=== PATIENT | female | born 1940 | race African-American/Black ===

== ENCOUNTER 2017-06-09 12:00 | Observation (INO) ==
[~2017-06-09 12:00] MED LIST: ACETYLCYSTEINE 600 MG CAPSULE PO SCH
[2017-06-09] MEDS: SODIUM CHLORIDE 0.9% 1,000 ML IV SCH ×2 (16:33→17:13)
--- NOTE | 2017-06-09 17:26 | Nephrology History & Physical ---
History of Present Illness Chief complaint: Complex renal cyst History of present illness: Ms. Brand is a 77 year old female with chronic kidney disease stage III with a creatinine around 2.5 mg/dL recently. The patient is admitted at this time for a CT scan with contrast of a complex cyst seen by ultrasound done about a month ago. The patient is admitted the night before for IV fluid hydration and Mucomyst therapy. We are going to hold her diuretics today and tomorrow. We will plan on keeping the patient in for about [address] scan to continue IV fluids. And also administer her 2 more doses of Mucomyst post procedure. The patient denies any abdominal complaints she denies any fever or chills. ROS: Head - denies headaches ENT - denies sore throat Lymphatics - denies lymphadenopathy Hematology - denies bleeding problems Heart - denies chest pain Lungs - denies shortness of breath Abdomen - denies abdominal pain PE: General: in no acute distress Eyes: Pupils are round and reactive, conjunctivae are clear ENT: Nose is clear, O/P is benign Neck: Supple, no thyromegaly Lymphatics: No cervical, supraclavicular or axillary adenopathy Heart: Regular rate and rhythm, trace pretibial edema Lungs: Clear to auscultation anteriorly, chest expansion symmetric Abdomen: Soft, normoactive bowel sounds, no hepatomegaly Musculoskeletal: No joint erythema or effusions or joint asymmetry Skin: Normal turgor, normal hydration, no rash Neuro/Psych: Alert and cooperative with fair insight Home Medications Medication Instructions Recorded Confirmed Type Aspirin 325 mg PO DAILY 06/09/17 06/09/17 History D3/Folic Acid/Collagen,Hydroly 1,000 units PO DAILY 06/09/17 06/09/17 History [Cyfolex Capsule] Doxazosin [Cardura] 2 mg PO DAILY 06/09/17 06/09/17 History Glimepiride 2 mg PO DAILY 06/09/17 06/09/17 History Lovastatin 10 mg PO DAILY 06/09/17 06/09/17 History amLODIPine [Norvasc] 10 mg PO DAILY 06/09/17 06/09/17 History cloNIDine HCl [Clonidine HCl] 0.2 mg PO DAILY 06/09/17 06/09/17 History Allergies Allergy/AdvReac Type Severity Reaction Status Date / Time No Known Allergies Allergy Verified 06/09/17 16:40 Medical,Surgical,& Family Hx - Medical History Cardio: History of: Hypertension Endocrine: History of: Diabetes Mellitus (NIDDM) - Surgical History Reproductive Surgeries: Surgical HX of;: Section (60 years ago) - Family History Family History: Reports;: Family Cancer (Mother- Pancreatic Cancer), Family Hypertension (Mother) - Social History Smoking Status: Former smoker Frequency of Alcohol Use: None Type of Drug Use: None Exam - Nephrology - Vital Signs Vital signs: Vital Signs Temp Pulse Resp BP Pulse Ox 06/09/17 15:31 97.1 F L 64 18 162/73 99 06/09/17 15:28 97.1 F L 64 18 162/73 99 Assessment and Plan (1) Complex renal cyst Status: Acute Assessment and plan: Patient is admitted for a CT scan with contrast to evaluate a complex renal cyst seen by ultrasound. She is been seen by Dr. Garcia and he agrees with this further evaluation. Current Visit: Yes (2) Hypertension Status: Acute Assessment and plan: We will continue her antihypertensives Current Visit: Yes (3) Diabetes mellitus Status: Acute Current Visit: Yes (4) Chronic kidney disease, stage III (moderate) Status: Acute Current Visit: Yes (5) Hyperlipidemia Status: Acute Current Visit: Yes
[2017-06-09] MEDS ORDERED: LACTULOSE 20 GM/30 ML UDCUP PO PRN (17:32)
[2017-06-09] MEDS ORDERED: ZALEPLON 5 MG CAPSULE PO PRN (17:32)
[2017-06-09] MEDS ORDERED: ACETAMINOPHEN 325 MG TABLET PO PRN (17:32)
[2017-06-09] MEDS ORDERED: PROMETHAZINE 25 MG TABLET PO PRN (17:32)
[2017-06-09] MEDS ORDERED: diphenhydrAMINE CAP 25 MG CAPSULE PO PRN (17:32)
[2017-06-09] MEDS ORDERED: ONDANSETRON 4 MG/2 ML VIAL IV PRN (17:32)
[2017-06-09] MEDS ORDERED: BISACODYL 5 MG TABLET PO PRN (17:32)
[2017-06-09] MEDS ORDERED: DOCUSATE SODIUM 100 MG CAPSULE PO PRN (17:32)
[2017-06-09] MEDS ORDERED: DEXTROSE 50% 25 GM/50 ML VIAL IV PRN (17:35)
[2017-06-09] MEDS ORDERED: GLUCAGON 1 MG VIAL IM PRN (17:35)
[2017-06-09] MEDS: ACETYLCYSTEINE 600 MG CAPSULE PO SCH (17:56)
[2017-06-10] MEDS ORDERED: ACETYLCYSTEINE 600 MG CAPSULE PO SCH (06:00)
[2017-06-10] MEDS: ACETYLCYSTEINE 600 MG CAPSULE PO SCH ×3 (06:28→17:37)
[2017-06-10] MEDS: SODIUM CHLORIDE 0.9% 1,000 ML IV SCH (06:28)
[2017-06-10] MEDS ORDERED: amLODIPine 10 MG TABLET PO SCH (09:00)
[2017-06-10] MEDS ORDERED: ASPIRIN 325 MG TABLET PO SCH (09:00)
[2017-06-10] MEDS ORDERED: LOVASTATIN 20 MG TABLET PO SCH (09:00)
[2017-06-10] MEDS ORDERED: DOXAZOSIN 4 MG TABLET PO SCH (09:00)
[2017-06-10] MEDS ORDERED: [UNRECOGNIZED DRUG - MIXTURE] PO SCH (09:00)
[2017-06-10] MEDS ORDERED: GLIMEPIRIDE 2 MG TABLET PO SCH (09:00)
[2017-06-10] MEDS: INSULIN REGULAR 100 UNIT/ML SUBCUT SCH ×2 (09:11→17:38)
--- NOTE | 2017-06-10 09:23 | CT Report ---
CT renal w con Indication: Renal mass on ultrasound. CT ABDOMEN WITH AND WITHOUT CONTRAST, renal protocol DLP: 535 mGy*cm. One or more of the following dose reduction techniques was used: Automated exposure control, adjustment of the mA and/or kV according the patient size, or use of iterative reconstruction techniques. Comparison: None Technique: Axial CT images of the abdomen primarily focused on the kidneys were obtained pre-and post IV contrast administration. Oral contrast was not administered. Omnipaque 350, 100 cc. Abdomen: Both kidneys demonstrate marked lobulations and cortical thinning. Both kidneys also demonstrate focal cortical defects consistent with scarring, difficult to further characterize. At the upper pole the right kidney is a oval-shaped 13 x 27 mm perfusion defect that gradually washes in on delayed phase. There is a small dilated calyx at the lateral portion of the upper pole right kidney as well, 9 mm diameter. No other right renal lesions are definitively identified. In the left kidney, there is a complex cluster of cysts anterior upper pole measuring approximately 18 mm in diameter. The 2 dominant satellite cysts are each 7 mm in size. Just lateral of this cystic complex is a 10 mm enhancing nodule that may represent a mass. It washes in on delayed phases. No other left renal lesions are shown. Neither kidney is obstructed and no abnormal calcifications are seen. The liver, spleen, adrenal glands, pancreas, gallbladder and bowel appear grossly unremarkable. Appendix is normal in size without inflammation. Normal heart size. Interstitial scarring of the lung bases noted. No infiltrates or nodules demonstrated. Degenerative changes thoracolumbar spine are present but relatively mild. Mild atheromatous disease of the aorta. Impression: 1. Both kidneys have renal cortical thinning and scattered areas of cortical defects most consistent with scarring. In addition, there is a lobulated perfusion defect that gradually washes in on delayed phases at the upper pole the right kidney, either scarring or mass. There is a complex cluster of cysts within the upper pole the left kidney described above as well, 18 mm overall diameter. Lateral of this cluster of cysts is a 10 mm enhancing nodule that may represent a mass or cortical scarring. These findings are all relatively indeterminate. Consider 3 month follow-up CT. 2. Interstitial scarring lung bases. Mild atheromatous disease. PROCEDURE INTERPRETED AT [facility] DEPARTMENT OF RADIOLOGY Final Report Signed by: Suman Mcguire M.D.
--- NOTE | 2017-06-10 10:37 | Discharge Summary ---
Hospital Course - Hospital Course Hospital Course: Patient was admitted for a contrasted CT scan due to a abnormal appearing renal masslike lesion on her left kidney. The patient was hydrated with saline 12 hours preprocedure and is to receive another 6 hours of hydration post procedure we also gave her Mucomyst pre-and post procedure. I am going to have the patient follow-up with a BMP early next week. The CT scan shows multiple scarring defects in both kidneys as well as some cystic lesions and a 1 cm enhancing lobular lesion on the left. I am going to have her follow-up with Dr. Jorge Garcia to evaluate this further. Radiology is suggested 3 month follow-up with the CT scan. Patient's creatinine was around 2.5 mg/dL a few weeks ago, I have not calculated her GFR off of this if it is greater than 30 mL 's per minute then I would probably be inclined to have a follow-up MRI in 3 months as opposed to a contrasted CT scan. Diagnosis - Discharge Diagnosis (1) Complex renal cyst Status: Acute (2) Hypertension Status: Acute (3) Diabetes mellitus Status: Acute (4) Chronic kidney disease, stage III (moderate) Status: Acute (5) Hyperlipidemia Status: Acute Discharge Plan - Discharge Data Disposition: Disch To Home/Self Care Condition at Discharge: Stable Discharge Diet: advance to your usual diet Activity: resume usual activities as tolerated - Discharge Medications No Action cloNIDine HCl [Clonidine HCl] 0.2 mg PO DAILY Glimepiride 2 mg PO DAILY amLODIPine [Norvasc] 10 mg PO DAILY D3/Folic Acid/Collagen,Hydroly [Cyfolex Capsule] 1,000 units PO DAILY Aspirin 325 mg PO DAILY Doxazosin [Cardura] 2 mg PO DAILY Lovastatin 10 mg PO DAILY - Follow Up or Referral Follow Up: Jorge Garcia MD [Physician] - 2 Weeks (F/u left enhancing 1 cm left renal lesion/mass by contrasted ct scan) Suman Valle MD [Primary Care Provider] - 1 Week (f/u next Tuesday for bmp only, no need to see me at that time.) - Forms/Instructions Additional Discharge Instructions: Discharge home around 3 to 4 PM this evening continue IV fluids up to the time of discharge. Exam - Constitutional Vitals: Period Temp Pulse Resp BP Sys/Burrell Pulse Ox Last 24 Hr 97.1 F-98.4 F 64-77 18-20 152-178/73-79 95-99 Discharge Results Labs on day of discharge: Labs from last 24 hours 06/10/17 08:05 POC Glucose 169 H DS: Provider Date of admission: 06/09/17 14:35 Primary care physician: Suman Valle MD Attending physician on admission: Suman Valle MD Discharging clinician: Suman Valle MD
[2017-06-10 12:03] VITALS: BP 136/65
== END 2017-06-10 18:15 | disposition home or self-care (01) ==
LOC: N.4E
PROVIDERS: ADMIT Internal Medicine Nephrology; ATTEND Internal Medicine Nephrology

== ENCOUNTER 2021-10-04 19:23 | Observation (INO) ==
[2021-10-04] MEDS: DEXTROSE 5% NACL 0.45% 1,000 ML IV SCH (20:00)
[2021-10-04 20:02] LABS: Eosinophils # 0.2 10*3/uL (0.0-0.87); Eosinophils % 2.8 % (0.00-10.9); Hematocrit 32.4 VOL% (35.7-47.0); Hemoglobin 9.8 GM/DL (12.0-16.0); Immature Granulocytes % 0.5 %; Immature Granulocytes Absolute 0.03 #; Lymphocytes # 0.5 10*3/uL (1.4-4.0); Lymphocytes % 8.2 % (21.3-54.2); Mean Corpuscular HGB Conc 30.2 GM/DL (32-36); Mean Corpuscular Volume 84.4 FL (87-102); Mean Platelet Volume 11.2 FL (9.6-12.0); Monocytes % 12.1 % (1.7-12.7); Neutrophils % 76.4 % (38.7-73.9); Platelet Count 156 T/CUMM (130-400); Red Blood Count 3.84 MC/CUMM (3.8-5.5); Red Cell Distribution Width 14.2 % (9.3-17.3); White Blood Count 6.1 T/CUMM (4-12)
[2021-10-04 20:30] LABS: Alanine Aminotransferase 13 U/L (13-56); Albumin 3.7 G/DL (3.4-5.0); Alkaline Phosphatase 61 U/L (45-117); Aspartate Amino Transferase 13 U/L (0-37); Bilirubin,Total < 0.39 MG/DL (0.20-1.00); Blood Urea Nitrogen 68 MG/DL (7-18); Carbon Dioxide 22 MMOL/L (21-32); Estimated Glom Filtration Rate 3 ML/MIN; Glucose 94 MG/DL (74-106); Osmolality,Calculated 296.5 MOS/KG (273-304); Potassium 3.4 MMOL/L (3.5-5.1); Sodium 139 MMOL/L (136-145); Total Protein 8.1 G/DL (6.4-8.2)
[2021-10-04 20:57] LABS: Bacteria,Urine Occasional /HPF (Few); Bilirubin,Urine Negative (Negative); Blood, Urine Small mg/dL (Negative); Glucose,Urine (UA) Negative (Negative); Ketones,Urine Negative (Negative); Nitrite,Urine Negative (Negative); Protein,Urine >=500 MG/DL; RBC,Urine 6 /HPF (0-4); Squamous Epithelial Cell,Urine Occasional /HPF (0-10); Urine Appearance Slightly Hazy (Clear); Urine Color Yellow (Yellow); Urine Specific Gravity 1.011 (1.001-1.035); Urine Urobilinogen < 2.0 EU/DL (0.2-1.0)
[2021-10-04 21:21] LABS: PT Patient Result 11.3 SECS (10.5-12.0)
[2021-10-04] MEDS ORDERED: CIPROFLOXACIN 500 MG TABLET PO STA (21:29)
[2021-10-04] MEDS ORDERED: DEXTROSE 50% 25 GM/50 ML SYRINGE IV ONE (21:32)
[2021-10-04] MEDS ORDERED: DEXTROSE 50% 25 GM/50 ML VIAL IV STA (21:32)
[2021-10-04] MEDS ORDERED: LEVOFLOXACIN INJ 500 MG/100 ML PREMIX IV ONE (21:32)
[2021-10-04] MEDS ORDERED: hydrALAZINE 20 MG/1 ML VIAL IV STA (21:38)
[2021-10-04] MEDS ORDERED: DEXTROSE 10% 1,000 ML IV SCH (22:00)
[2021-10-04] MEDS ORDERED: GLUCAGON 1 MG VIAL IM PRN (22:09)
[2021-10-04] MEDS ORDERED: ACETAMINOPHEN 325 MG TABLET PO PRN (22:09)
[2021-10-04] MEDS: HEPARIN 5,000 UNIT/1 ML VIAL SUBCUT SCH (23:33)
[2021-10-05] MEDS: DEXTROSE 50% 25 GM/50 ML VIAL IV PRN ×3 (02:10→05:59)
[2021-10-05 02:39] LABS: Alanine Aminotransferase 9 U/L (13-56); Alkaline Phosphatase 54 U/L (45-117); Aspartate Amino Transferase 12 U/L (0-37); Bilirubin,Total < 0.39 MG/DL (0.20-1.00); Blood Urea Nitrogen 69 MG/DL (7-18); Calcium 8.8 MG/DL (8.5-10.1); Carbon Dioxide 22 MMOL/L (21-32); Estimated Glom Filtration Rate 3 ML/MIN; Osmolality,Calculated 290.7 MOS/KG (273-304); Potassium 3.4 MMOL/L (3.5-5.1); Sodium 138 MMOL/L (136-145)
[2021-10-05 02:41] LABS: Glucose 35 MG/DL (74-106)
[2021-10-05] MEDS ORDERED: HYDROCORTISONE 100 MG VIAL IV STA (03:17)
[2021-10-05 04:33] LABS: Eosinophils # 0.1 10*3/uL (0.0-0.87); Eosinophils % 1.8 % (0.00-10.9); Hematocrit 28.7 VOL% (35.7-47.0); Immature Granulocytes % 0.4 %; Immature Granulocytes Absolute 0.02 #; Lymphocytes # 0.5 10*3/uL (1.4-4.0); Lymphocytes % 9.1 % (21.3-54.2); Mean Corpuscular HGB Conc 31.4 GM/DL (32-36); Mean Corpuscular Volume 82.7 FL (87-102); Mean Platelet Volume 11.5 FL (9.6-12.0); Neutrophils % 75.7 % (38.7-73.9); Platelet Count 146 T/CUMM (130-400); Red Blood Count 3.47 MC/CUMM (3.8-5.5); White Blood Count 5.1 T/CUMM (4-12)
[2021-10-05 05:15] LABS: Albumin 2.9 G/DL (3.4-5.0); Bilirubin,Total 0.8 MG/DL (0.20-1.00); Calcium 8.7 MG/DL (8.5-10.1); Osmolality,Calculated 294.4 MOS/KG (273-304); Potassium 3.3 MMOL/L (3.5-5.1); Thyroid Stimulating Hormone 1.44 uIU/ml (0.358-3.74); Total Protein 6.9 G/DL (6.4-8.2)
[2021-10-05] MEDS ORDERED: cloNIDine 0.1 MG TABLET PO ONE (05:18)
[2021-10-05] MEDS: amLODIPine 10 MG TABLET PO SCH (09:14)
[2021-10-05] MEDS: DEXTROSE 5% NACL 0.45% 1,000 ML IV SCH (09:32)
[2021-10-05] MEDS: HEPARIN 5,000 UNIT/1 ML VIAL SUBCUT SCH ×2 (11:32→21:50)
[2021-10-05] MEDS ORDERED: ZALEPLON 5 MG CAPSULE PO PRN (22:49)
[2021-10-06] MEDS: DEXTROSE 5% 1,000 ML IV SCH ×3 (01:07→22:47)
[2021-10-06 05:50] LABS: Calcium 8.9 MG/DL (8.5-10.1); Osmolality,Calculated 296.7 MOS/KG (273-304); Potassium 3.7 MMOL/L (3.5-5.1)
[2021-10-06] MEDS: amLODIPine 10 MG TABLET PO SCH (08:11)
[2021-10-06] MEDS: HEPARIN 5,000 UNIT/1 ML VIAL SUBCUT SCH ×2 (12:01→21:54)
[2021-10-06] MEDS ORDERED: LEVOFLOXACIN INJ 500 MG/100 ML PREMIX IV SCH (21:00)
[2021-10-07 06:00] LABS: Calcium 8.6 MG/DL (8.5-10.1); Osmolality,Calculated 295.7 MOS/KG (273-304); Potassium 4.1 MMOL/L (3.5-5.1)
[2021-10-07] MEDS: amLODIPine 10 MG TABLET PO SCH (09:08)
[2021-10-07] MEDS: DEXTROSE 5% 1,000 ML IV SCH (09:17)
[2021-10-07] MEDS: HEPARIN 5,000 UNIT/1 ML VIAL SUBCUT SCH ×2 (11:56→21:31)
[2021-10-08 04:51] LABS: Basophils % 0.2 % (0.0-0.8); Eosinophils # 0.5 10*3/uL (0.0-0.87); Eosinophils % 8.3 % (0.00-10.9); Hematocrit 27.6 VOL% (35.7-47.0); Hemoglobin 8.5 GM/DL (12.0-16.0); Immature Granulocytes % 0.5 %; Immature Granulocytes Absolute 0.03 #; Lymphocytes # 0.9 10*3/uL (1.4-4.0); Lymphocytes % 16.2 % (21.3-54.2); Mean Corpuscular HGB Conc 30.8 GM/DL (32-36); Mean Corpuscular Volume 83.9 FL (87-102); Mean Platelet Volume 11.7 FL (9.6-12.0); Monocytes % 13.9 % (1.7-12.7); Neutrophils % 60.9 % (38.7-73.9); Platelet Count 145 T/CUMM (130-400); Red Blood Count 3.29 MC/CUMM (3.8-5.5); Red Cell Distribution Width 14.3 % (9.3-17.3); White Blood Count 5.6 T/CUMM (4-12)
[2021-10-08 05:13] LABS: Calcium 8.7 MG/DL (8.5-10.1); Osmolality,Calculated 300.4 MOS/KG (273-304)
[2021-10-08] MEDS: amLODIPine 10 MG TABLET PO SCH (09:29)
[2021-10-08] MEDS ORDERED: CITRIC ACID/SODIUM CITRATE 30 ML UDCUP PO SCH (09:30)
[2021-10-08 11:32] VITALS: BP 157/55
[2021-10-08] MEDS: HEPARIN 5,000 UNIT/1 ML VIAL SUBCUT SCH (11:50)
== END 2021-10-08 14:33 | disposition home or self-care (01) ==
LOC: N.ED 19:23 → N.EDINP 19:23 → SUATTDRO 22:09 → N.EDINP 10-05 04:28 → N.ICU 10-05 04:45 → N.3E 10-05 16:44
PROVIDERS: ADMIT Internal Medicine; ATTEND Internal Medicine

== ENCOUNTER 2021-10-15 10:52 | Inpatient (IN) ==
[2021-10-15] MEDS ORDERED: ONDANSETRON 4 MG/2 ML VIAL IV PRN (13:51)
[2021-10-15] MEDS ORDERED: ACETAMINOPHEN 325 MG TABLET PO PRN (13:51)
[2021-10-15] MEDS ORDERED: PROMETHAZINE 25 MG TABLET PO PRN (13:51)
[2021-10-15] MEDS ORDERED: MAGNESIUM HYDROXIDE SUSP 30 ML UDCUP PO PRN (13:51)
[2021-10-15] MEDS ORDERED: BISACODYL 5 MG TABLET PO PRN (13:51)
[2021-10-15] MEDS ORDERED: cloNIDine 0.1 MG TABLET PO PRN (13:58)
[2021-10-15 16:10] LABS: Hepatitis B Surface Ab Result Reactive (NonReactive)
[2021-10-15 16:22] LABS: Hepatitis B Surface Ag Quant < 0.10 Index; Hepatitis B Surface Ag Result Non-Reactive (NonReactive)
[2021-10-16] MEDS: PANTOPRAZOLE 40 MG TABLET PO SCH (06:29)
[2021-10-16] MEDS ORDERED: EPOETIN ALFA-EPBX 2,000 UNIT/ML VIAL IV PRN (09:39)
[2021-10-16] MEDS ORDERED: LIDOCAINE/PRILOCAINE CREAM 5 GM TUBE TOP SCH (09:40)
[2021-10-16] MEDS ORDERED: GLUCAGON 1 MG VIAL IM PRN (09:43)
[2021-10-16] MEDS ORDERED: DEXTROSE 50% 25 GM/50 ML SYRINGE IV PRN (09:47)
[2021-10-16 11:18] LABS: Eosinophils # 0.3 10*3/uL (0.0-0.87); Eosinophils % 5.3 % (0.00-10.9); Hematocrit 27.8 VOL% (35.7-47.0); Hemoglobin 8.7 GM/DL (12.0-16.0); Lymphocytes # 0.8 10*3/uL (1.4-4.0); Lymphocytes % 14.1 % (21.3-54.2); Mean Corpuscular HGB Conc 31.3 GM/DL (32-36); Mean Corpuscular Volume 82.2 FL (87-102); Mean Platelet Volume 11.9 FL (9.6-12.0); Monocytes % 13.4 % (1.7-12.7); Neutrophils % 66.6 % (38.7-73.9); Platelet Count 111 T/CUMM (130-400); Red Blood Count 3.38 MC/CUMM (3.8-5.5); Red Cell Distribution Width 14.4 % (9.3-17.3); White Blood Count 5.5 T/CUMM (4-12)
[2021-10-16 11:45] LABS: Albumin 3.3 G/DL (3.4-5.0); Calcium 9.5 MG/DL (8.5-10.1); Potassium 3.2 MMOL/L (3.5-5.1)
[2021-10-16 11:48] LABS: % Iron Saturation 20.2 % (18-50); Ferritin 222.6 ng/mL (8-252)
[2021-10-16 12:53] LABS: Band Neutrophils 1 % (0-10); Eosinophils 7 % (0-10); Hypochromasia 2+; Lymphocytes 7 % (20-55); Segmented Neutrophils 77 % (50-85); Total Cells Counted 100
[2021-10-16 12:54] LABS: Microcytosis Slight; Ovalocytes Few; Platelet Estimate Adequate; Polychromasia Slight
[2021-10-16] MEDS: amLODIPine 2.5 MG TABLET PO SCH (14:51)
[2021-10-16] MEDS: INSULIN REGULAR 100 UNIT/ML SUBCUT SCH (16:26)
[2021-10-17] MEDS: PANTOPRAZOLE 40 MG TABLET PO SCH (06:15)
[2021-10-17] MEDS: amLODIPine 2.5 MG TABLET PO SCH ×2 (07:47→08:39)
[2021-10-17] MEDS: INSULIN REGULAR 100 UNIT/ML SUBCUT SCH ×2 (08:39→16:18)
[2021-10-18] MEDS: PANTOPRAZOLE 40 MG TABLET PO SCH (06:25)
[2021-10-18] MEDS: INSULIN REGULAR 100 UNIT/ML SUBCUT SCH ×2 (07:41→15:50)
[2021-10-18] MEDS: amLODIPine 2.5 MG TABLET PO SCH (08:57)
[2021-10-19] MEDS: PANTOPRAZOLE 40 MG TABLET PO SCH (05:49)
[2021-10-19] MEDS: INSULIN REGULAR 100 UNIT/ML SUBCUT SCH ×2 (09:15→18:14)
[2021-10-19] MEDS: amLODIPine 2.5 MG TABLET PO SCH (09:15)
[2021-10-19] MEDS ORDERED: IRON SUCROSE 100 MG/5 ML VIAL IV SCH (13:00)
[2021-10-19] MEDS ORDERED: carvediloL 3.125 MG TABLET PO SCH (13:00)
[2021-10-19] MEDS ORDERED: amLODIPine 5 MG TABLET PO SCH (13:00)
[2021-10-19] MEDS ORDERED: FERRIC GLUCONATE COMPLEX 125 MG in SODIUM CHLORIDE 0.9% 100 ML IV SCH (14:00)
[2021-10-19 16:50] VITALS: BP 163/69
== END 2021-10-19 17:51 | disposition home health service (06) | DRG 682 ==
LOC: N.5E 12:48
PROVIDERS: ADMIT Internal Medicine Nephrology; ATTEND Internal Medicine Nephrology